=== PATIENT | male | born 1935 | race African-American/Black ===

== ENCOUNTER 2018-08-26 17:49 | Inpatient (IN) | payer MEDICARE, OTHER ==
[~2018-08-26] VITALS: Ht 165.1 cm; Wt 68.0 kg
[2018-08-26 18:52] LABS: BASOPHILS % 0.6 % (0.0-2.0); EOSINOPHILS % 0.7 % (0.0-5.0); HEMOGLOBIN. 12.4 g/dL (14.0-18.0); MEAN CORPUSCULAR HEMOGLOBIN 31.2 pg (28.0-32.0); MEAN CORPUSCULAR VOLUME 93.4 fL (80.0-94.0); MEAN PLATELET VOLUME 10.4 fl (7.4-10.4); MONOCYTES % 7.6 % (2.0-8.0); NEUTROPHILS % 55.1 % (40.0-76.0); PLATELET 169 x1000/uL (130-400); RED BLOOD CELL COUNT 3.96 mill/uL (4.7-6.1); RED CELL DISTRIBUTION WIDTH 13.3 % (11.6-14.6)
[2018-08-26 19:00] LABS: CHLORIDE 97 mEq/L (98-107)
[2018-08-26] MEDS ORDERED: ONDANSETRON HCL 4MG/2ML INJ IV ONE (19:00)
[2018-08-26 19:03] LABS: PARTIAL THROMBOPLASTIN TIME 22.8 sec (23.4-31.0); PROTHROMBIN TIME 10.3 sec (9.1-11.1)
[2018-08-26] MEDS ORDERED: ASPIRIN 325MG EC TABLET PO ONE (20:15)
[2018-08-26] MEDS ORDERED: SODIUM BICARBONATE 8.4% 1 MEQ/ML 50ML SYR IV ONE (20:15)
[2018-08-26] MEDS ORDERED: SODIUM POLYSTYRENE SULFONATE 15 G/60 ML BOT PO ONE (20:15)
[2018-08-26] MEDS ORDERED: IPRATROPIUM/ALBUTEROL 0.5-3(2.5)MG/3ML NEB INH PRN (21:15)
[2018-08-26] MEDS ORDERED: HYDROCODONE/ACETAMINOPHEN 5/325MG TABLET PO PRN (21:15)
[2018-08-26] MEDS ORDERED: LORAZEPAM 2MG/ML CPJ IV PRN (21:15)
[2018-08-26] MEDS ORDERED: ONDANSETRON HCL 4MG/2ML INJ IV PRN (21:15)
[2018-08-26] MEDS ORDERED: DIPHENHYDRAMINE 50MG/ML VIAL IV PRN (21:15)
[2018-08-26] MEDS ORDERED: CLONIDINE 0.1MG TABLET PO PRN (21:15)
[2018-08-26] MEDS ORDERED: DOCUSATE SODIUM 100MG CAPSULE PO PRN (21:15)
[2018-08-26] MEDS ORDERED: GUAIFENESIN 200MG/10ML SUGAR FREE UDC PO PRN (21:15)
[2018-08-26] MEDS ORDERED: ACETAMINOPHEN 325MG TABLET PO PRN (21:15)
[2018-08-26] MEDS ORDERED: MAGNESIUM/ALUMINUM HYDROXIDE/SIMETHICONE 30ML UDC PO PRN (21:15)
[2018-08-26 21:37] LABS: CLARITY URINE CLEAR (CLEAR); COLOR URINE YELLOW (YELLOW); KETONES URINE NEGATIVE (NEGATIVE); LEUKOCYTE ESTERASE URINE NEGATIVE (NEGATIVE); NITRITE URINE NEGATIVE (NEGATIVE); OCCULT BLOOD URINE NEGATIVE (NEGATIVE); PROTEIN URINE NEGATIVE (NEGATIVE); SPECIFIC GRAVITY URINE 1.013 (1.005-1.030)
[2018-08-26 22:00] VITALS: BP 136/64
[2018-08-26] MEDS ORDERED: HYDROMORPHONE HCL/PF 2MG/ML CPJ IV PRN (22:00)
[2018-08-27] VITALS: BP 117/56
[2018-08-27 04:00] VITALS: BP 131/55
[2018-08-27] MEDS: SODIUM CHLORIDE 0.45% 1,000 ML IV SCH (04:33)
[2018-08-27 08:06] VITALS: BP 102/55
[2018-08-27] MEDS ORDERED: NA PHOS,M-B/NA PHOS,DI-BA ENEMA 118ML PR PRN (09:00)
[2018-08-27] MEDS: ASPIRIN 81MG EC TABLET PO SCH (09:08)
[2018-08-27] MEDS: ENOXAPARIN 40MG/0.4ML SYR SUBCUT SCH (09:09)
[2018-08-27 09:44] LABS: BASOPHILS % 0.1 % (0.0-2.0); EOSINOPHILS % 0.3 % (0.0-5.0); HEMATOCRIT. 33.1 % (42.0-52.0); HEMOGLOBIN. 11.1 g/dL (14.0-18.0); LYMPHOCYTES % 14.7 % (20.0-50.0); MEAN CORPUSCULAR HEMOGLOBIN 30.9 pg (28.0-32.0); MEAN PLATELET VOLUME 10.1 fl (7.4-10.4); MONOCYTES % 6.6 % (2.0-8.0); NEUTROPHILS % 78.3 % (40.0-76.0); PLATELET 144 x1000/uL (130-400)
[2018-08-27 11:52] LABS: CHLORIDE 101 mEq/L (98-107)
[2018-08-27 12:00] VITALS: BP 110/58
[2018-08-27 12:00] LABS: HDL CHOLESTEROL 45 mg/dL (40-59)
[2018-08-27 12:01] LABS: LDL CHOLESTEROL 91 mg/dL (5-100)
[2018-08-27 12:03] LABS: T4 FREE 1.07 ng/dL (0.76-1.46)
[2018-08-27 16:00] VITALS: BP 118/60
[2018-08-27 20:00] VITALS: BP 134/67
[2018-08-28] VITALS (8 sets, daily range): BP systolic 112–147; BP diastolic 52–74
[2018-08-28] MEDS: ASPIRIN 81MG EC TABLET PO SCH (08:35)
[2018-08-28] MEDS: ENOXAPARIN 40MG/0.4ML SYR SUBCUT SCH (08:35)
[2018-08-28] MEDS: SODIUM CHLORIDE 0.45% 1,000 ML IV SCH (08:36)
[2018-08-29] VITALS: BP 136/62
[2018-08-29 04:00] VITALS: BP 129/59
[2018-08-29 08:00] VITALS: BP 107/63
[2018-08-29] MEDS: ASPIRIN 81MG EC TABLET PO SCH (09:38)
[2018-08-29] MEDS: ENOXAPARIN 40MG/0.4ML SYR SUBCUT SCH (09:39)
[2018-08-29] MEDS: SODIUM CHLORIDE 0.45% 1,000 ML IV SCH (09:39)
[2018-08-29 12:00] VITALS: BP 103/51
[2018-08-29 16:00] VITALS: BP 114/59
[2018-08-29 20:00] VITALS: BP 141/67
[2018-08-30] VITALS: BP 129/54
[2018-08-30 04:00] VITALS: BP 130/62
[2018-08-30] MEDS: SODIUM CHLORIDE 0.45% 1,000 ML IV SCH (05:36)
[2018-08-30 08:00] VITALS: BP 134/68
[2018-08-30] MEDS: ASPIRIN 81MG EC TABLET PO SCH (09:58)
[2018-08-30] MEDS: ENOXAPARIN 40MG/0.4ML SYR SUBCUT SCH (09:59)
[2018-08-30 12:00] VITALS: BP 122/71
[2018-08-30 13:34] VITALS: BP 122/77
[2018-08-30 23:36] LABS: VITAMIN B12 SERUM 857 pg/mL (211-911)
== END 2018-08-30 15:00 | disposition home or self-care (01) | DRG 73 ==
LOC: ER 18:44 → 7WST 20:27 → ENRESERV 21:01 → 7WST 08-27 07:31
PROVIDERS: ADMIT Internal Medicine; ATTEND Internal Medicine
DX: G90.8 Other disorders of autonomic nervous system (principal); G93.41 Metabolic encephalopathy; E46 Unspecified protein-calorie malnutrition; E86.0 Dehydration; I10 Essential (primary) hypertension; E87.5 Hyperkalemia; G83.34 Monoplegia, unspecified affecting left nondominant side; Z68.25 Body mass index [BMI] 25.0-25.9, adult
CPT/HCPCS: 36415; 71045; 80061; 82607; 82962; 83880; 84439; 84443; 84484; 93005; 93306; 93880; 96374; 96375; 97163; 99285; J1650; J2405; J3490; J7030

== ENCOUNTER 2018-10-28 13:52 | Emergency (ER) | payer MEDICARE, OTHER ==
[~2018-10-28] VITALS: Ht 175.3 cm; Wt 80.0 kg
[2018-10-28] MEDS ORDERED: SODIUM CHLORIDE 0.9% 1,000 ML IV ONE (14:11)
[2018-10-28 15:16] LABS: BASOPHILS % 0.4 % (0.0-2.0); EOSINOPHILS % 0.3 % (0.0-5.0); HEMATOCRIT. 37.1 % (42.0-52.0); HEMOGLOBIN. 12.1 g/dL (14.0-18.0); LYMPHOCYTES % 19.4 % (20.0-50.0); MEAN CORPUSCULAR HEMOGLOBIN 30.6 pg (28.0-32.0); MEAN CORPUSCULAR VOLUME 94.1 fL (80.0-94.0); MEAN PLATELET VOLUME 11.1 fl (7.4-10.4); MONOCYTES % 7.3 % (2.0-8.0); NEUTROPHILS % 72.6 % (40.0-76.0); PLATELET 165 x1000/uL (130-400); RED BLOOD CELL COUNT 3.94 mill/uL (4.7-6.1); RED CELL DISTRIBUTION WIDTH 12.8 % (11.6-14.6)
[2018-10-28 15:22] LABS: CHLORIDE 102 mEq/L (98-107)
[2018-10-28 15:30] LABS: CLARITY URINE TURBID (CLEAR); KETONES URINE TRACE (NEGATIVE); LEUKOCYTE ESTERASE URINE 2+ (NEGATIVE); NITRITE URINE NEGATIVE (NEGATIVE); OCCULT BLOOD URINE 3+ (NEGATIVE); PROTEIN URINE 1+ (NEGATIVE); SPECIFIC GRAVITY URINE 1.026 (1.005-1.030)
[2018-10-28 15:39] LABS: COLOR URINE DARK YELLOW (YELLOW)
[2018-10-28] MEDS ORDERED: CEFTRIAXONE 1 G PREMIX 50 ML IV ONE (16:00)
[2018-10-28 19:26] VITALS: BP 116/59
== END 2018-10-28 19:46 | disposition short-term general hospital (02) ==
LOC: ER 13:52 → CANBEDREQ 20:47
DX: R55 Syncope and collapse (principal); N39.0 Urinary tract infection, site not specified; E86.0 Dehydration; I11.9 Hypertensive heart disease without heart failure
CPT/HCPCS: 36415; 71045; 80053; 81003; 82962; 83880; 84484; 85025; 87086; 93005; 96361; 96374; 99285; J0696; J7030